=== PATIENT | female | born 1990 | race Caucasian/White ===

== ENCOUNTER 2019-02-24 18:44 | Emergency (ER) | payer OTHER ==
[~2019-02-24] VITALS: Ht 167.6 cm; Wt 81.6 kg
[2019-02-24] MEDS ORDERED: IBUPROFEN600 MG PO (19:36)
[2019-02-24] MEDS ORDERED: ROBAXIN500 M1 PO (19:36)
[2019-02-24] MEDS ORDERED: AUGMENTIN 875875 MG PO (19:36)
== END 2019-02-24 19:59 ==
LOC: ED 18:44
DX: S13.4XXA Sprain of ligaments of cervical spine, initial encounter (principal); H92.01 Otalgia, right ear; J02.9 Acute pharyngitis, unspecified; X50.1XXA Overexertion from prolonged static or awkward postures, initial encounter; Y93.67 Activity, basketball; Y92.89 Other specified places as the place of occurrence of the external cause; Y99.9 Unspecified external cause status

== ENCOUNTER 2019-06-24 15:28 | Emergency (ER) | payer OTHER ==
[~2019-06-24] VITALS: Ht 170.1 cm; Wt 72.6 kg
[~2019-06-24 15:28] MED LIST: AUGMENTIN 875875 MG PO; IBUPROFEN600 MG PO; ROBAXIN500 M1 PO
[2019-06-24 15:58] LABS: BILIRUBIN NEGATIVE (NEGATIVE); BLOOD NEGATIVE (NEGATIVE); COLOR YELLOW (YELLOW); GLUCOSE NEGATIVE (NEGATIVE); KETONE NEGATIVE (NEGATIVE); LEUKO ESTERASE NEGATIVE (NEGATIVE); NITRITE NEGATIVE (NEGATIVE); PH 7.5 (5.0-9.0); SPECIFIC GRAVITY 1.015 (1.005-1.030); UROBILINOGEN 0.2 E.U./dl (0.2-1.0)
[2019-06-24 16:19] LABS: BACTERIA TRACE; CLARITY SL CLOUDY (CLEAR); MUCOUS 2+
[2019-06-24] MEDS ORDERED: SEPTDS PO (16:40)
[2019-06-28 07:09] LABS: GONOCOCCUS BY NAA Negative (Negative)
== END 2019-06-24 17:02 | disposition home or self-care (01) ==
LOC: ED 15:28
PROVIDERS: Nurse Practitioner Family
DX: R30.0 Dysuria (principal)

== ENCOUNTER 2021-11-04 21:49 | Emergency (ER) | payer OTHER ==
[~2021-11-04] VITALS: Ht 165.1 cm; Wt 65.8 kg
[~2021-11-04 21:49] MED LIST changes: +SEPTDS PO
[2021-11-05] MEDS ORDERED: IBU800 M2 PO (00:35)
== END 2021-11-05 01:09 | disposition home or self-care (01) ==
LOC: ED 21:49
DX: S16.1XXA Strain of muscle, fascia and tendon at neck level, initial encounter (principal); S00.83XA Contusion of other part of head, initial encounter; S60.221A Contusion of right hand, initial encounter; W18.39XA Other fall on same level, initial encounter; Y93.89 Activity, other specified; Y92.89 Other specified places as the place of occurrence of the external cause; Y99.8 Other external cause status

== ENCOUNTER 2023-04-20 14:20 | Emergency (ER) | payer OTHER ==
[~2023-04-20] VITALS: Wt 72.6 kg
[~2023-04-20 14:20] MED LIST changes: +IBU800 M2 PO
[2023-04-20] MEDS ORDERED: PREDNISONE10 MG PO (14:53)
== END 2023-04-20 15:15 | disposition home or self-care (01) ==
LOC: ED 14:20
DX: L23.7 Allergic contact dermatitis due to plants, except food (principal)

== ENCOUNTER 2023-04-29 21:22 | Emergency (ER) | payer OTHER ==
[~2023-04-29] VITALS: Ht 170.1 cm; Wt 72.6 kg
[~2023-04-29 21:22] MED LIST changes: +PREDNISONE10 MG PO
[2023-04-29 22:15] LABS: BASO # 0.1 10*3/uL (0.0-0.1); BASO % 0.4 % (0.0-1.0); HEMATOCRIT 39.8 % (37.0-47.0); LYMPH # 1.3 10*3/uL (1.3-4.4); LYMPH % 9.8 % (27.0-41.0); MEAN CORPUSCULAR HGB 28.6 pg (27.0-31.0); MEAN CORPUSCULAR HGB CONC 33.7 g/dl (33.0-37.0); MEAN PLATELET VOLUME 10.1 fl (9.6-12.3); MONO # 0.2 10*3/uL (0.1-1.0); MONO % 1.5 % (3.0-9.0); NEUT # 11.2 10*3/uL (2.3-7.9); NEUT % 86.4 % (47.0-73.0); PLATELET COUNT AUTOMATED 355 10*3/uL (130-400); RED BLOOD COUNT 4.68 10*6/uL (4.10-5.10); RED CELL DISTRI WIDTH 12.8 % (0-14.5); WHITE BLOOD COUNT 12.9 10*3/uL (4.8-10.8)
[2023-04-29 22:29] LABS: BILIRUBIN Negative (Negative); BLOOD Negative (Negative); CLARITY Clear (Clear); COLOR Yellow (Yellow); GLUCOSE Trace (Negative); KETONE Negative (Negative); LEUKO ESTERASE Negative (Negative); NITRITE Negative (Negative); SPECIFIC GRAVITY <= 1.005 (1.001-1.030); UROBILINOGEN 0.2 E.U./dl (0.0-1.0)
[2023-04-29 22:36] LABS: URINE AMPHETAMINES Negative (1000ng/ml); URINE BARBITURATES Negative (200ng/ml); URINE BENZODIAZEPINES Negative (200ng/ml); URINE CANNABINOIDS (THC) Positive (50ng/ml); URINE COCAINE Negative (300ng/ml); URINE METHADONE Negative (300ng/ml); URINE OPIATES Negative (300ng/ml); URINE PHENCYCLIDINE Negative (25ng/ml)
[2023-04-29 22:37] LABS: ALKALINE PHOSPHATASE 84 U/L (46-116); BUN 13 mg/dl (9-23); CHLORIDE 104 mmol/L (98-107); ETHYL ALCOHOL 9.8 mg/dl (<3); SGPT/ALT 21 U/L (10-49); TOTAL PROTEIN 7.1 gm/dL (6.0-8.0)
[2023-04-29 22:58] LABS: WBC 0-2 wbc/hpf (0-5)
== END 2023-04-30 10:35 | disposition left against medical advice (07) ==
LOC: ED 21:22
PROVIDERS: Physician Assistant Medical
DX: F31.9 Bipolar disorder, unspecified (principal); F41.9 Anxiety disorder, unspecified; Z79.2 Long term (current) use of antibiotics; Z79.899 Other long term (current) drug therapy

== ENCOUNTER 2023-05-04 02:04 | Emergency (ER) | payer OTHER ==
[~2023-05-04] VITALS: Ht 162.5 cm; Wt 61.2 kg
== END 2023-05-04 03:04 | disposition home or self-care (01) ==
LOC: ED 02:04
DX: S50.02XA Contusion of left elbow, initial encounter (principal); F31.9 Bipolar disorder, unspecified; F17.200 Nicotine dependence, unspecified, uncomplicated; W17.89XA Other fall from one level to another, initial encounter; Y93.89 Activity, other specified; Y92.009 Unspecified place in unspecified non-institutional (private) residence as the place of occurrence of the external cause; Y99.8 Other external cause status